=== PATIENT | male | born 1960 | race Caucasian/White ===

== ENCOUNTER 2018-11-16 10:35 | Emergency (ER) | payer MEDICAID ==
[~2018-11-16] VITALS: Ht 177.8 cm; Wt 113.4 kg
[2018-11-16 12:22] LABS: Chloride 110 mmol/L (98-107); Potassium 3.8 mmol/L (3.5-5.1); Sodium 139 mmol/L (136-145)
[2018-11-16 12:28] LABS: Basophils # (auto) 0 uL; Basophils % (auto) 0.9 % (0.0-2.0); Eosinophils # (auto) 0.1 uL; Eosinophils % (auto) 2.3 % (0.0-7.0); Hematocrit 50.6 % (41.0-53.0); Hemoglobin 16.7 g/dL (13.5-17.5); Lymphocytes # (auto) 1.4 uL; Lymphocytes % (auto) 24.6 % (10.0-50.0); Mean Corpuscular Hemoglobin 29.7 pg (28.0-32.0); Mean Corpuscular Volume 89.9 fL (80.0-100.0); Monocytes # (auto) 0.4 uL; Monocytes % (auto) 7.9 % (0.0-12.0); Neutrophils # (auto) 3.7 uL; Neutrophils % (auto) 64.3 % (37.0-80.0); Nucleated Red Blood Cells % 0.2 %; Platelet Count (auto) 300 10^3/uL (140-450); Red Blood Cells 5.63 10^6/uL (4.5-5.90); Red Cell Distribution Width 15.2 % (11.8-14.3); White Blood Cell 5.7 10^3/uL (4.4-10.8)
[2018-11-16 12:32] LABS: Alanine Aminotransferase 30 U/L (16-61); Alkaline Phosphatase 76 U/L (45-117); Anion Gap 9 (5-15); Aspartate Aminotransferase 21 U/L (15-37); BUN/Creatinine Ratio 11.7; Bilirubin, Total 0.6 mg/dL (0.2-1.0); Blood Urea Nitrogen 14 mg/dL (7-18); Carbon Dioxide 20 mmol/L (21-32); GFR African American 79 mL/min; GFR Non-African American 66 mL/min; Glucose 108 mg/dL (74-106); Total Protein 8.1 g/dL (6.4-8.2)
[2018-11-16] MEDS ORDERED: NICARDIPINE 25MG/250ML BAG KIT 250 ML IV ONE (12:52)
[2018-11-16] MEDS: NICARDIPINE 25MG/250ML BAG KIT 250 ML IV SCH ×2 (13:22→18:00)
[2018-11-16 13:58] LABS: INR 0.94 (0.9-1.15); Partial Thromboplastin Time 28.2 sec (23.64-32.05)
[2018-11-16 22:44] VITALS: BP 140/99
[2018-11-17] MEDS ORDERED: CLOPIDOGREL BISULFATE 75 MG TAB PO SCH (10:00)
[2018-11-17] MEDS ORDERED: ASPirin 81 mg TAB PO SCH (10:00)
[2018-11-17] MEDS ORDERED: ATORVASTATIN 20 MG TAB PO SCH (10:00)
== END 2018-11-16 10:54 | disposition short-term general hospital (02) ==
LOC: EDBD 10:35 → ER 10:46
DX: I63.9 Cerebral infarction, unspecified (principal); I10 Essential (primary) hypertension; F17.210 Nicotine dependence, cigarettes, uncomplicated
CPT/HCPCS: 36415; 70450; 70545; 70551; 80053; 84484; 85025; 85610; 85730; 93005; 94761